=== PATIENT | female | born 1975 | race Native Hawaiian/Other Pacific Islander ===

== ENCOUNTER 2022-12-02 16:52 | Emergency (ER) | payer OTHER ==
[~2022-12-02] VITALS: Ht 165.1 cm; Wt 81.6 kg
[2022-12-02 17:00] VITALS: TEMP 97.9
[2022-12-02 17:42] LABS: PLATELET COUNT 351 K/uL (152-353)
[2022-12-02 17:59] LABS: POTASSIUM 4.5 mmol/L (3.6-5.2)
[2022-12-02 20:20] VITALS: BP 149/99
== END 2022-12-02 20:20 | disposition home or self-care (01) ==
LOC: ED 16:52
PROVIDERS: Emergency Medicine
DX: E11.65 Type 2 diabetes mellitus with hyperglycemia (principal); E86.0 Dehydration
CPT/HCPCS: 80053; 81000; 82948; 84484; 85027; 93005; 96361; 96374; 99284; J1815